=== PATIENT | male | born 1970 | race Caucasian/White ===

== ENCOUNTER → 2022-07-06 | Outpatient (CLI) | payer BC | LOC: M LABSMTC 11:46 | PROVIDERS: ATTEND Anesthesiology | DX: Z01.812 Encounter for preprocedural laboratory examination (principal); Z11.52 Encounter for screening for COVID-19 ==

== ENCOUNTER 2022-07-10 09:18 | Day surgery (SDC) | payer BC ==
[~2022-07-10] VITALS: Ht 182.9 cm; Wt 91.8 kg
[~2022-07-10 09:18] MED LIST: NS 1,000 ML IV ONE
[2022-07-10 10:25] VITALS: BP 152/99
[2022-07-10] MEDS ORDERED: propofoL 500 MG/50 ML VIAL As Ordered ONE (12:13)
[2022-07-10] MEDS ORDERED: LIDOCAINE 2% 100MG/5ML SDV (FOR ANES.) As Ordered ONE (12:13)
== END 2022-07-10 10:29 | disposition home or self-care (01) ==
LOC: M OPP 09:18
PROVIDERS: ATTEND Surgery
DX: Z12.11 Encounter for screening for malignant neoplasm of colon (principal); K57.30 Diverticulosis of large intestine without perforation or abscess without bleeding; F17.220 Nicotine dependence, chewing tobacco, uncomplicated; Z80.3 Family history of malignant neoplasm of breast

== ENCOUNTER → 2023-07-27 | Outpatient (REF) | payer BC ==
[2023-07-27 17:27] LABS: RHEUMATOID FACTOR QUANT < 3.5 IU/ML (<14)
[2023-07-29 10:10] LABS: ANTINUCLEAR ANTIBODIES DIRECT Negative (Negative)
== END ==
LOC: M LAB REF 16:29
PROVIDERS: ATTEND Family Medicine
DX: R74.01 Elevation of levels of liver transaminase levels (principal); M19.90 Unspecified osteoarthritis, unspecified site